=== PATIENT | male | born 2005 | race Caucasian/White ===

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

== ENCOUNTER 2025-03-01 20:08 | Emergency (ER) | payer OTHER ==
[2025-03-01 20:13] VITALS: BP 129/77; PULSE 63; RESP 18; TEMP 98.2; BMI 25.7
== END 2025-03-01 20:36 | disposition home or self-care (01) ==
LOC: JERFT 20:08
DX: Z04.1 Encounter for examination and observation following transport accident (principal); V87.7XXA Person injured in collision between other specified motor vehicles (traffic), initial encounter; Y92.410 Unspecified street and highway as the place of occurrence of the external cause
CPT/HCPCS: 99283-25